=== PATIENT | female | born 1975 | race African-American/Black ===

== ENCOUNTER 2018-07-14 09:07 | Day surgery (SDC) | payer MEDICARE ==
[~2018-07-14] VITALS: Ht 154.9 cm; Wt 77.1 kg
[~2018-07-14 09:07] MED LIST: BACTRIM DS TABL1 TAB PO; CIPRO250 MG PO; CLEOCIN HCL300 MG PO; HUMALOG 30100 UNITS/ SC; KEFLEX500 MG PO; LANTUS SOL100 UNIT/1 SC; NEURONTIN 300300 MG PO; NORMODYNE / TR300 MG PO; NORVASC5 MG PO; PHENAZOPYRIDIN200 MG PO; PRILOSEC20 MG PO; PRINIVIL20 MG PO; TYLENOL W/CODEI1 TAB PO; VENTOLIN HFA18 GM INH
[2018-07-14 09:46] LABS: BASOPHILS 0.5 % (0-2); EOSINOPHILS 3.2 % (0-7); HEMATOCRIT 36.7 % (36.0-48.0); HEMOGLOBIN 11.8 g/dL (12-16); IMMATURE GRANULOCYTES 0.2 % (0-5); LYMPHOCYTES 28.9 % (15-50); MCH 31.3 pg (26.0-34.0); MCHC 32.2 g/dL (31.0-37.0); MCV 97.3 fL (80.0-100.0); MEAN PLATELET VOLUME 9.1 fL (7.4-10.4); MONOCYTES 9.5 % (2-11); NEUTROPHILS 57.7 % (40-80); PLATELET COUNT 229 10x3/uL (130-400); RBC 3.77 10x6/uL (4.00-5.40); RDW 14.8 % (11.5-14.5)
[2018-07-14 10:09] LABS: ANION GAP 14.2 mmol/L (8-16); CALCIUM 8.8 mg/dL (8.5-10.1); CARBON DIOXIDE 27.3 mmol/L (21.0-32.0); POTASSIUM - SERUM 3.5 mmol/L (3.5-5.1)
[2018-07-14 10:30] LABS: APTT 34.4 SECONDS (22.8-39.4); INR 0.97 (0.85-1.17); PROTIME 12.5 SECONDS (11.6-15.0)
[2018-07-14] MEDS ORDERED: LEVEMIR100 U/M1 SC (10:36)
[2018-07-14] MEDS ORDERED: AMBIEN10 MG PO (10:38)
[2018-07-14] MEDS ORDERED: OXY IR30 MG PO (10:39)
[2018-07-14] MEDS ORDERED: KLONOPIN1 MG PO (10:40)
[2018-07-14] MEDS ORDERED: ULTRAM50 MG PO (10:40)
[2018-07-14] MEDS ORDERED: NORMODYNE / TR200 MG PO (10:41)
[2018-07-14] MEDS ORDERED: LIPITOR80 MG PO (10:42)
[2018-07-14] MEDS ORDERED: PLAVIX75 MG PO (10:42)
[2018-07-14] MEDS ORDERED: KEPPRA500 MG PO (10:42)
[2018-07-14] MEDS ORDERED: ELIQUIS2.5 MG PO (10:43)
[2018-07-14 10:45] VITALS: BP 103/68; Ht 154.9 cm; Wt 77.1 kg
[2018-07-14] MEDS ORDERED: HYDROCODON-ACE1 EAC7 PO (15:37)
== END 2018-07-14 17:30 | disposition home or self-care (01) ==
LOC: D.OPS 09:07
PROVIDERS: Surgery
DX: E11.22 Type 2 diabetes mellitus with diabetic chronic kidney disease (principal); I12.0 Hypertensive chronic kidney disease with stage 5 chronic kidney disease or end stage renal disease; N18.5 Chronic kidney disease, stage 5; Z99.2 Dependence on renal dialysis; Z01.812 Encounter for preprocedural laboratory examination